=== PATIENT | female | born 1955 | race Caucasian/White ===

== ENCOUNTER → 2020-09-18 | Outpatient (CLI) | payer BC ==
[~2020-09-18] MED LIST: ALORA; ANTIBIODIC; ATEN25 PO; ATOR10 PO; BENAML10/5; BUPR150T2; CIPR500 PO; DULO60 PO; ENOX30I SQ; ESTMET; FLUO20; HYDACE5325 PO; IBUP800; LORA1; MELO7.5 PO; METCAR750 PO; METF500 PO; METO50 PO; METO50ER; METO50ER PO; METR500 PO; MOXI400; OMEP20ER; OMEP20ER PO; OXYACE5T PO; OXYC1TAB11 PO; OXYC5 PO; PROM25 PO; RXOXYACE PO
== END ==
LOC: LAB SHORT 19:43 → LAB 19:43
DX: N39.0 Urinary tract infection, site not specified (principal)
CPT/HCPCS: 87086

== ENCOUNTER → 2024-03-17 | Outpatient (CLI) | payer BC ==
[~2024-03-17] MED LIST changes: +Percocet 5-3251 EACH PO
== END ==
LOC: LAB SHORT 11:32
DX: R10.9 Unspecified abdominal pain (principal)
CPT/HCPCS: 87077; 87086; 87186